=== PATIENT | female | born 1975 | race Caucasian/White ===

== ENCOUNTER 2020-06-13 13:25 | Observation (INO) | payer BC, OTHER ==
--- NOTE | 2020-06-13 13:28 | ERPHSYRPT ---
- History of Present Illness Time Seen by Provider: 06/13/20 13:28 Source: patient, EMS Exam Limitations: clinical condition Physician History: This is a 44-year-old white female who presented to the [facility] with complaints of multiple snakes in her vehicle that were biting her. In addition she was stating that her was performing line control on her. Per the officers, the patient is a known K2 and methamphetamine abuser/user. He is supposedly a schizophrenic as well and has been off of her medications for quite some time. Patient is aggressive and agitated and arrives to the emergency room via EMS. She is aggressive and agitated and is not allowing us to draw blood. She is yelling and cursing. She does appear intoxicated. The officers have IDed her. The patient is a danger to herself she is paranoid and hallucinating. Patient is not answering questions. However, I did ask if she has any complaints at all she mumbled no. When I asked her if she had any pain anywhere she mumbled no Severity of Symptoms-Max: moderate Severity of Symptoms-Current: moderate Context related to: other (Paranoia and hallucinations) Suicidal thoughts: other (Patient does not answer the question.) Associated Symptoms: agitated, hostile, hallucinating Previous symptoms: same symptoms as today Allergies/Adverse Reactions: UNOBTAINABLE Allergy (Unverified 06/13/20 13:43) Home Medications: Unobtainable 06/13/20 [History] Travel Risk - International Travel Have you traveled outside of the country in past 3 weeks: No - Coronavirus Screening Are you exhibiting any of the following symptoms?: No Close contact with a COVID-19 positive Pt in past 14-21 Days: No - Past Medical History Pertinent Past Medical History: No Neurological History: No Pertinent History ENT History: No Pertinent History Cardiac History: No Pertinent History Respiratory History: No Pertinent History Endocrine Medical History: No Pertinent History Musculoskeletal History: No Pertinent History GI Medical History: No Pertinent History History: No Pertinent History Psycho-Social History: No Pertinent History Female Reproductive Disorders: No Pertinent History - Past Surgical History Past Surgical History: No Neuro Surgical History: No Pertinent History Cardiac: No Pertinent History Respiratory: No Pertinent History Gastrointestinal: No Pertinent History Genitourinary: No Pertinent History Musculoskeletal: No Pertinent History Female Surgical History: No Pertinent History - Review of Systems Constitutional: No Symptoms Eyes: No Symptoms Ears, Nose, & Throat: No Symptoms Respiratory: No Symptoms Cardiac: No Symptoms Abdominal/Gastrointestinal: No Symptoms Genitourinary Symptoms: No Symptoms Musculoskeletal: No Symptoms Skin: No Symptoms Neurological: No Symptoms Psychological: Emotional Lability, Hallucinations Endocrine: No Symptoms Hematologic/Lymphatic: No Symptoms Immunological/Allergic: No Symptoms All Other Systems: Reviewed and Negative - Nursing Vital Signs Nursing Vital Signs: Initial Vital Signs Pulse Rate 120 H 06/13/20 13:31 Respiratory Rate 22 06/13/20 13:31 Blood Pressure 122/75 06/13/20 13:31 O2 Sat by Pulse Oximetry 99 06/13/20 13:31 Pain Scale Pain Intensity 0 - Physical Exam General Appearance: moderate distress, alert, anxiety Eyes, Ears, Nose, Throat Exam: normal ENT inspection, moist mucous membranes Neck Exam: normal inspection, non-tender, supple, full range of motion Respiratory Exam: normal breath sounds, lungs clear, airway intact, No chest tenderness, No respiratory distress Cardiovascular Exam: normal peripheral pulses, tachycardia Gastrointestinal/Abdominal Exam: soft, normal bowel sounds, No tenderness Extremities Exam: normal inspection, normal range of motion, No evidence of injury Neurological Exam: agitated, anxious Appearance: impaired insight Behavior/Eye Contact/Speech: avoids eye contact, refused to answer, uncooperative, agitated, intoxicated appearance Thoughts/Hallucinations: paranoid, visual hallucinations Skin Exam: normal color, warm, dry SpO2 Interpretation: normal O2 Delivery: Room Air Ordered Tests: Active Orders 24 hr Category Date Time Status Cma Or Lpn STAT Care 06/13/20 13:39 Active Clean Catch Urine Specimen STAT Care 06/13/20 13:38 Active EKG-ER Only STAT Care 06/13/20 13:38 Active IV Insertion STAT Care 06/13/20 13:38 Active ACETAMINOPHEN Stat Lab 06/13/20 14:33 Completed CBC W DIFF Stat Lab 06/13/20 14:33 Completed CMP Stat Lab 06/13/20 14:33 Completed CULTURE,URINE Stat Lab 06/13/20 14:50 Received ETHYL ALCOHOL Stat Lab 06/13/20 14:33 Completed SALICYLATE Stat Lab 06/13/20 14:33 Completed Urine Triage Profile Stat Lab 06/13/20 13:39 Completed Medication Summary Discontinued Medications Generic Name Dose Route Start Last Admin Trade Name Freq PRN Reason Stop Dose Admin Haloperidol Lactate 5 mg 06/13/20 13:38 06/13/20 13:53 Haldol 5 Mg IM 06/13/20 13:39 5 mg STAT ONE Administration Haloperidol Lactate Confirm 06/13/20 13:39 Haldol 5 Mg Administered 06/13/20 13:40 Dose 5 mg .ROUTE .STK-MED ONE Sodium Chloride 1,000 mls @ 999 mls/hr 06/13/20 13:38 06/13/20 15:23 Sodium Chloride 0.9% 1000 Ml IV 06/13/20 14:38 Infused .Q1H1M STA Infusion Sodium Chloride Confirm 06/13/20 14:13 Sodium Chloride 0.9% 1000 Ml Administered 06/13/20 14:14 Dose 1,000 mls @ ud .ROUTE .STK-MED ONE Lorazepam 2 mg 06/13/20 14:22 06/13/20 14:51 Ativan 2 Mg/1 Ml Vial IM 06/13/20 14:23 2 mg STAT ONE Administration Lorazepam Confirm 06/13/20 14:22 Ativan 2 Mg/1 Ml Vial Administered 06/13/20 14:23 Dose 2 mg .ROUTE .STK-MED ONE Lorazepam 2 mg 06/13/20 14:42 06/13/20 14:51 Ativan 2 Mg/1 Ml Vial IV 06/13/20 14:43 2 mg STAT ONE Administration Lorazepam Confirm 06/13/20 14:42 Ativan 2 Mg/1 Ml Vial Administered 06/13/20 14:43 Dose 2 mg .ROUTE .STK-MED ONE Lab/Rad Data: Laboratory Result Diagrams 06/13/20 14:33 06/13/20 14:33 Laboratory Results 06/13/20 06/13/20 06/13/20 Range/Units 16:23 14:33 14:33 WBC 9.1 (4.0-10.5) K/mm3 RBC 4.32 (4.1-5.4) M/mm3 Hgb 13.2 (12.0-16.0) gm/dl Hct 39.6 (35-47) % MCV 91.7 (78-100) fl MCH 30.6 (26-32) pg MCHC 33.3 (32-36) g/dl RDW 12.6 (11.5-14.0) % Plt Count 246 (150-450) K/mm3 MPV 10.8 (7.5-11.0) fl Gran % 65.0 (36.0-66.0) % Eos # (Auto) 0.06 (0-0.5) Absolute Lymphs (auto) 2.04 (1.0-4.6) Absolute Monos (auto) 1.05 (0.0-1.3) Lymphocytes % 22.5 L (24.0-44.0) % Monocytes % 11.6 (0.0-12.0) % Eosinophils % 0.7 (0.00-5.0) % Basophils % 0.2 (0.0-0.4) % Absolute Granulocytes 5.89 (1.4-6.9) Basophils # 0.02 (0-0.4) Sodium 137 (137-145) mmol/L Potassium 3.5 (3.5-5.1) mmol/L Chloride 107 (98-107) mmol/L Carbon Dioxide 19 L (22-30) mmol/L Anion Gap 13.9 (5-15) MEQ/L BUN 14 (7-17) mg/dL Creatinine 0.79 (0.52-1.04) mg/dL Estimated GFR > 60.0 ML/MIN Glucose 108 H (74-106) mg/dL Calcium 8.7 (8.4-10.2) mg/dL Total Bilirubin 0.40 (0.2-1.3) mg/dL AST 27 (14-36) U/L ALT 17 (0-35) U/L Alkaline Phosphatase 65 (38-126) U/L Serum Total Protein 6.6 (6.3-8.2) g/dL Albumin 3.9 (3.5-5.0) g/dL Salicylates < 1.0 L (2-20) mg/dL Urine Opiates Level (NEGATIVE) Ur Methadone (NEGATIVE) Acetaminophen 22 (10-30) ug/ml Urine Barbiturates (NEGATIVE) Ur Phencyclidine (PCP) (NEGATIVE) Urine Amphetamine (NEGATIVE) U Benzodiazepine Level (NEGATIVE) Urine Cocaine (NEGATIVE) Urine Marijuana (THC) (NEGATIVE) Ethyl Alcohol < 10 (0-10) mg/dL SARS-CoV-2 (PCR) NEGATIVE (NEGATIVE) 06/13/20 Range/Units 13:39 WBC (4.0-10.5) K/mm3 RBC (4.1-5.4) M/mm3 Hgb (12.0-16.0) gm/dl Hct (35-47) % MCV (78-100) fl MCH (26-32) pg MCHC (32-36) g/dl RDW (11.5-14.0) % Plt Count (150-450) K/mm3 MPV (7.5-11.0) fl Gran % (36.0-66.0) % Eos # (Auto) (0-0.5) Absolute Lymphs (auto) (1.0-4.6) Absolute Monos (auto) (0.0-1.3) Lymphocytes % (24.0-44.0) % Monocytes % (0.0-12.0) % Eosinophils % (0.00-5.0) % Basophils % (0.0-0.4) % Absolute Granulocytes (1.4-6.9) Basophils # (0-0.4) Sodium (137-145) mmol/L Potassium (3.5-5.1) mmol/L Chloride (98-107) mmol/L Carbon Dioxide (22-30) mmol/L Anion Gap (5-15) MEQ/L BUN (7-17) mg/dL Creatinine (0.52-1.04) mg/dL Estimated GFR ML/MIN Glucose (74-106) mg/dL Calcium (8.4-10.2) mg/dL Total Bilirubin (0.2-1.3) mg/dL AST (14-36) U/L ALT (0-35) U/L Alkaline Phosphatase (38-126) U/L Serum Total Protein (6.3-8.2) g/dL Albumin (3.5-5.0) g/dL Salicylates (2-20) mg/dL Urine Opiates Level NEGATIVE (NEGATIVE) Ur Methadone NEGATIVE (NEGATIVE) Acetaminophen (10-30) ug/ml Urine Barbiturates NEGATIVE (NEGATIVE) Ur Phencyclidine (PCP) NEGATIVE (NEGATIVE) Urine Amphetamine POSITIVE (NEGATIVE) U Benzodiazepine Level NEGATIVE (NEGATIVE) Urine Cocaine NEGATIVE (NEGATIVE) Urine Marijuana (THC) NEGATIVE (NEGATIVE) Ethyl Alcohol (0-10) mg/dL SARS-CoV-2 (PCR) (NEGATIVE) - Progress Progress: improved, re-examined Progress Note: 06/13/20 18:22 Medical decision making: This patient has a history of schizophrenia and bipolar disorder. She has been off her medication for several months per her family report. She is also been using methamphetamines. Patient has been having hallucinations. She has been agitated and aggressive in her behavior. She re quired both chemical and physical restraints. We have now removed her physical restraints and she is sedated with a combination of Ativan and Haldol. Patient will require evaluation by [facility]. We will admit her to the intensive care unit. I spoke to Dr. Valdez. I reviewed the patient history, condition, laboratory results. She accepts the patient admission in the intensive care un it. She will obtain [facility] consultation in the morning. Discussed with : Amanda - Departure Departure Disposition: Home Clinical Impression: Self-harming behavior, Visual hallucinations, Schizophrenia, Bipolar disorder Condition: Stable Critical Care Time: Yes Critical Care Time(excluding separately billable procedures): Critical 30-74 mins
[2020-06-13] MEDS ORDERED: Haldol 5 MG IM ONE (13:38)
[2020-06-13] MEDS ORDERED: Sodium Chloride 0.9% 1000 ML 1,000 ML IV STA (13:38)
[2020-06-13] MEDS ORDERED: Haldol 5 MG ONE (13:39)
[2020-06-13] MEDS ORDERED: Sodium Chloride 0.9% 1000 ML 1,000 ML ONE (14:13)
[2020-06-13] MEDS ORDERED: Ativan 2 MG/1 ML VIAL IM ONE (14:22)
[2020-06-13] MEDS ORDERED: Ativan 2 MG/1 ML VIAL ONE ×2 (14:22→14:42)
[2020-06-13] MEDS ORDERED: Ativan 2 MG/1 ML VIAL IV ONE (14:42)
[2020-06-13 14:50] LABS: Absolute Neutrophil Ct (ANC) 5.89 (1.4-6.9); BASOPHIL % 0.2 % (0.0-0.4); Basophil (Absolute #) 0.02 (0-0.4); Eosinophil % 0.7 % (0.00-5.0); Eosinophil (Absolute #) 0.06 (0-0.5); Hematocrit 39.6 % (35-47); Hemoglobin 13.2 gm/dl (12.0-16.0); Lymphocyte (Absolute #) 2.04 (1.0-4.6); Lymphocytes % 22.5 % (24.0-44.0); Mean Cell Volume 91.7 fl (78-100); Mean Corpuscular Hemoglobin 30.6 pg (26-32); Mean Corpuscular Hgb Concent. 33.3 g/dl (32-36); Mean Platelet Volume 10.8 fl (7.5-11.0); Monocyte (Absolute #) 1.05 (0.0-1.3); Monocytes % 11.6 % (0.0-12.0); Platelet Count 246 K/mm3 (150-450); Red Blood Count 4.32 M/mm3 (4.1-5.4); Red Cell Distribution Width 12.6 % (11.5-14.0); White Blood Count 9.1 K/mm3 (4.0-10.5)
[2020-06-13 15:05] LABS: Barbiturate,Urine NEGATIVE (NEGATIVE); Benzodiazepine,Urine NEGATIVE (NEGATIVE); Cocaine,Urine NEGATIVE (NEGATIVE); Methadone,Urine NEGATIVE (NEGATIVE); Opiate,Urine NEGATIVE (NEGATIVE); PCP,Urine NEGATIVE (NEGATIVE); THC,Urine NEGATIVE (NEGATIVE)
[2020-06-13 15:35] LABS: Amphetamine,Urine POSITIVE (NEGATIVE)
[2020-06-13 15:39] LABS: ACETAMINOPHEN 22 ug/ml (10-30); ALBUMIN 3.9 g/dL (3.5-5.0); ALKALINE PHOSPHATASE 65 U/L (38-126); ANION GAP 13.9 MEQ/L (5-15); BLOOD UREA NITROGEN 14 mg/dL (7-17); CHLORIDE 107 mmol/L (98-107); Calcium 8.7 mg/dL (8.4-10.2); Carbon Dioxide 19 mmol/L (22-30); Creatinine 1 0.79 mg/dL (0.52-1.04); EST GLOMERULAR FILTRATION RATE > 60.0 ML/MIN; Glucose 108 mg/dL (74-106); Potassium 3.5 mmol/L (3.5-5.1); SGOT/AST 27 U/L (14-36); SGPT/ALT 17 U/L (0-35); SODIUM 137 mmol/L (137-145); Total Protein 6.6 g/dL (6.3-8.2)
[2020-06-13 15:48] LABS: ETHYL ALCOHOL < 10 mg/dL (0-10); SALICYLATE < 1.0 mg/dL (2-20)
[2020-06-13] MEDS ORDERED: Zofran 4 MG/2 ML VIAL IV PRN (18:33)
[2020-06-13] MEDS ORDERED: TYLENOL 325 MG PO PRN (18:33)
[2020-06-13] MEDS: Ativan 2 MG/1 ML VIAL IV PRN ×2 (18:39→23:10)
[2020-06-13] MEDS: Sodium Chloride 0.9% 1000 ML 1,000 ML IV SCH (18:39)
--- NOTE | 2020-06-14 08:38 | PCM.HP ---
History of Present Illness - Chief Complaint Chief Complaint: Visual hallucinations Date: 06/14/20 History of Present Illness: is a 44 year old female, with known history of drug abuse and schizophrenia presented by police yesterday with florid hallucinations, pt. had to be restrained and immediate [facility] initiated awaiting her psych consult. - Review of Systems Constitutional: No Fever, No Chills Eyes: No Symptoms Ears, Nose, & Throat: No Symptoms Respiratory: No Cough, No Short Of Breath Cardiac: No Chest Pain, No Edema, No Syncope Abdominal/Gastrointestinal: No Abdominal Pain, No Nausea, No Vomiting, No Diarrhea Genitourinary Symptoms: No Dysuria Musculoskeletal: No Back Pain, No Neck Pain Skin: No Rash Neurological: No Dizziness, No Focal Weakness, No Sensory Changes Psychological: No Symptoms Endocrine: No Symptoms Hematologic/Lymphatic: No Symptoms Immunological/Allergic: No Symptoms Medications & Allergies Home Medications: Home Medication List No Reportable Medications [No Reported Medications] 06/13/20 [History Confirmed 06/13/20] Allergies/Adverse Reactions: Allergies Allergy/AdvReac Type Severity Reaction Status Date / Time UNOBTAINABLE Allergy Unverified 06/13/20 13:43 - Past Medical History Past Medical History: No Neurological History: No Pertinent History ENT History: No Pertinent History Cardiac History: No Pertinent History Respiratory History: No Pertinent History Endocrine Medical History: No Pertinent History Musculoskelatal History: No Pertinent History GI Medical History: No Pertinent History History: No Pertinent History Pyscho-Social History: Other Reproductive Disorders: No Pertinent History Comment: schizophrenia, bipolar, substance abuse (meth) - Female History Hx Last Menstrual Period: unsure Are you now?: No - Past Surgical History Past Surgical History: No Neuro Surgical History: No Pertinent History Cardiac History: No Pertinent History Respiratory Surgery: No Pertinent History GI Surgical History: No Pertinent History Genitourinary Surgical Hx: No Pertinent History Musculskeletal Surgical Hx: No Pertinent History Female Surgical History: No Pertinent History - Social History Smoking Status: Former smoker Exposure to second hand smoke: No - Physical Exam Vital Signs: Vital Signs - 24 hr Temp Pulse Resp BP BP Pulse Ox 06/14/20 08:00 98 H 16 105/80 98 06/14/20 07:48 99 06/14/20 04:00 97.6 F 91 H 16 110/81 99 11/18/20 23:56 82 06/13/20 23:44 97.1 F 86 19 124/85 99 06/13/20 19:16 97.1 F 99 H 111/80 100 06/13/20 18:29 113 H 17 111/80 100 06/13/20 18:04 98.2 F 82 20 133/87 99 06/13/20 17:02 105 H 18 121/77 98 06/13/20 16:38 97.6 F 104 H 20 123/69 100 06/13/20 15:32 112 H 16 123/73 98 06/13/20 13:31 120 H 22 122/75 99 General Appearance: no apparent distress Neurologic Exam: intoxicated appearance Eye Exam: eyes nml inspection Ears, Nose, Throat Exam: normal ENT inspection, moist mucous membranes Neck Exam: normal inspection, non-tender, supple Respiratory Exam: normal breath sounds, lungs clear, No chest tenderness Cardiovascular Exam: regular rate/rhythm, normal heart sounds Gastrointestinal/Abdomen Exam: soft, normal bowel sounds, No tenderness, No distention, No mass Pelvic Exam: not done Rectal Exam: not done Extremity Exam: normal inspection, No calf tenderness Skin Exam: normal color, warm, dry, No rash, No petechiae Results - Labs Lab/Micro Results: Lab Results-Last 24 Hours 06/13/20 06/13/20 06/13/20 Range/Units 13:39 14:33 14:33 WBC 9.1 (4.0-10.5) K/mm3 RBC 4.32 (4.1-5.4) M/mm3 Hgb 13.2 (12.0-16.0) gm/dl Hct 39.6 (35-47) % MCV 91.7 (78-100) fl MCH 30.6 (26-32) pg MCHC 33.3 (32-36) g/dl RDW 12.6 (11.5-14.0) % Plt Count 246 (150-450) K/mm3 MPV 10.8 (7.5-11.0) fl Gran % 65.0 (36.0-66.0) % Eos # (Auto) 0.06 (0-0.5) Absolute Lymphs (auto) 2.04 (1.0-4.6) Absolute Monos (auto) 1.05 (0.0-1.3) Lymphocytes % 22.5 L (24.0-44.0) % Monocytes % 11.6 (0.0-12.0) % Eosinophils % 0.7 (0.00-5.0) % Basophils % 0.2 (0.0-0.4) % Absolute Granulocytes 5.89 (1.4-6.9) Basophils # 0.02 (0-0.4) Sodium 137 (137-145) mmol/L Potassium 3.5 (3.5-5.1) mmol/L Chloride 107 (98-107) mmol/L Carbon Dioxide 19 L (22-30) mmol/L Anion Gap 13.9 (5-15) MEQ/L BUN 14 (7-17) mg/dL Creatinine 0.79 (0.52-1.04) mg/dL Estimated GFR > 60.0 ML/MIN Glucose 108 H (74-106) mg/dL Calcium 8.7 (8.4-10.2) mg/dL Total Bilirubin 0.40 (0.2-1.3) mg/dL AST 27 (14-36) U/L ALT 17 (0-35) U/L Alkaline Phosphatase 65 (38-126) U/L Serum Total Protein 6.6 (6.3-8.2) g/dL Albumin 3.9 (3.5-5.0) g/dL Salicylates < 1.0 L (2-20) mg/dL Urine Opiates Level NEGATIVE (NEGATIVE) Ur Methadone NEGATIVE (NEGATIVE) Acetaminophen 22 (10-30) ug/ml Urine Barbiturates NEGATIVE (NEGATIVE) Ur Phencyclidine (PCP) NEGATIVE (NEGATIVE) Urine Amphetamine POSITIVE (NEGATIVE) U Benzodiazepine Level NEGATIVE (NEGATIVE) Urine Cocaine NEGATIVE (NEGATIVE) Urine Marijuana (THC) NEGATIVE (NEGATIVE) Ethyl Alcohol < 10 (0-10) mg/dL SARS-CoV-2 (PCR) (NEGATIVE) 06/13/20 Range/Units 16:23 WBC (4.0-10.5) K/mm3 RBC (4.1-5.4) M/mm3 Hgb (12.0-16.0) gm/dl Hct (35-47) % MCV (78-100) fl MCH (26-32) pg MCHC (32-36) g/dl RDW (11.5-14.0) % Plt Count (150-450) K/mm3 MPV (7.5-11.0) fl Gran % (36.0-66.0) % Eos # (Auto) (0-0.5) Absolute Lymphs (auto) (1.0-4.6) Absolute Monos (auto) (0.0-1.3) Lymphocytes % (24.0-44.0) % Monocytes % (0.0-12.0) % Eosinophils % (0.00-5.0) % Basophils % (0.0-0.4) % Absolute Granulocytes (1.4-6.9) Basophils # (0-0.4) Sodium (137-145) mmol/L Potassium (3.5-5.1) mmol/L Chloride (98-107) mmol/L Carbon Dioxide (22-30) mmol/L Anion Gap (5-15) MEQ/L BUN (7-17) mg/dL Creatinine (0.52-1.04) mg/dL Estimated GFR ML/MIN Glucose (74-106) mg/dL Calcium (8.4-10.2) mg/dL Total Bilirubin (0.2-1.3) mg/dL AST (14-36) U/L ALT (0-35) U/L Alkaline Phosphatase (38-126) U/L Serum Total Protein (6.3-8.2) g/dL Albumin (3.5-5.0) g/dL Salicylates (2-20) mg/dL Urine Opiates Level (NEGATIVE) Ur Methadone (NEGATIVE) Acetaminophen (10-30) ug/ml Urine Barbiturates (NEGATIVE) Ur Phencyclidine (PCP) (NEGATIVE) Urine Amphetamine (NEGATIVE) U Benzodiazepine Level (NEGATIVE) Urine Cocaine (NEGATIVE) Urine Marijuana (THC) (NEGATIVE) Ethyl Alcohol (0-10) mg/dL SARS-CoV-2 (PCR) NEGATIVE (NEGATIVE) Microbiology 06/13/20 14:50 Urine Culture - Preliminary Catherized <10K NORMAL SKIN PATRICIA PROBABLE SKIN CONTAMINANT Assessment/Plan (1) Methamphetamine abuse Current Visit: Yes Status: Acute Assessment & Plan: await psych clearance and plan Code(s): F15.10 - OTHER STIMULANT ABUSE, UNCOMPLICATED (2) Schizophrenia Current Visit: Yes Status: Acute Assessment & Plan: psych eval and plan Code(s): F20.9 - SCHIZOPHRENIA, UNSPECIFIED
[2020-06-14] MEDS ORDERED: FLUZONE QUAD 2020-2021 SYRINGE IM ONE (10:00)
[2020-06-14] MEDS: Sodium Chloride 0.9% 1000 ML 1,000 ML IV SCH (14:11)
[2020-06-15] MEDS: Sodium Chloride 0.9% 1000 ML 1,000 ML IV SCH (09:48)
[2020-06-15 11:31] VITALS: BP 95/57; O2SAT 99
[2020-06-15 12:48] VITALS: PULSE 115
--- NOTE | 2020-06-15 12:57 | PCM.DS ---
Discharge Summary Date of Admission: 06/13/20 18:20 Admitting Physician: LYNSEY BHAT DO Consults: Consults on Case 06/13/20 18:33 Consult,Yoly [Psychiatric Consult] STAT Primary Care Provider: DAYNA CHAVEZ Allergies Allergies UNOBTAINABLE Allergy (Unverified 06/14/20 12:55) Hospital Summary - Hospital Course Hospital Course: Patient was admitted through ER with hallucinations and combative behavior. She had pulled into the ch[facility] asking for help with snakes that are in her truck biting her. She became combative and was IDed by police. She has Hx Schizophrenia , Meth and K2 abuse. She was chemically restrained with Haldol and Ativan and admitted to ICU . She has been sleeping and when awake and alert ,[place] completed a Tele mental Health evaluation. She was not homicidal or suicidal and did not qualify for inpatient admission and will be followed as an outpatient at [facility]. - Vitals & Intake/Output Vital Signs: Vital Signs Temperature 98.7 F 06/15/20 11:30 Pulse Rate 115 H 06/15/20 12:00 Respiratory Rate 20 06/15/20 11:30 Blood Pressure 95/57 06/15/20 11:30 O2 Sat by Pulse Oximetry 99 06/15/20 12:00 Intake & Output: Intake & Output 06/13/20 06/14/20 06/15/20 06/16/20 11:59 11:59 11:59 11:59 Intake Total 534 1563 Output Total 1900 Balance 534 -337 Weight 56.6 kg 54.1 kg - Lab Result Diagrams: 06/13/20 14:33 06/13/20 14:33 Micro Results-Entire Visit: Microbiology 06/13/20 14:50 Urine Culture - Final Catherized <10K NORMAL SKIN PATRICIA PROBABLE SKIN CONTAMINANT Discharge Exam General Appearance: no apparent distress Neurologic Exam: alert, oriented x 3, cooperative Eye Exam: PERRL, EOMI Ears, Nose, Throat Exam: normal ENT inspection Neck Exam: normal inspection Respiratory Exam: normal breath sounds, lungs clear Cardiovascular Exam: regular rate/rhythm Gastrointestinal/Abdomen Exam: soft, normal bowel sounds (nontender) Extremity Exam: normal inspection Skin Exam: normal color, warm, dry Final Diagnosis/Problem List - Final Discharge Diagnosis/Problem (1) Hallucinations, unspecified Current Visit: Yes Status: Resolved Assessment & Plan: will follow with [facility] Code(s): R44.3 - HALLUCINATIONS, UNSPECIFIED (2) Bipolar disorder Current Visit: Yes Status: Chronic Assessment & Plan: has not been followed for possible 3 years but agrees to go to outpatient at the [facility] for initial appt. . Code(s): F31.9 - BIPOLAR DISORDER, UNSPECIFIED (3) Schizophrenia Current Visit: Yes Status: Chronic Assessment & Plan: not currently on medication.Will have appt CHANDRAKANT with [facility] .I spoke to patient's Harshil and he and the daughter will help her get to the visit Phone # given on discharge.. Code(s): F20.9 - SCHIZOPHRENIA, UNSPECIFIED (4) Drug abuse Current Visit: Yes Status: Acute Assessment & Plan: acute and chronic ,is willing to get help,Family seems supportive. Code(s): F19.10 - OTHER PSYCHOACTIVE SUBSTANCE ABUSE, UNCOMPLICATED - Discharge Disposition: Home, Self-Care Condition: Stable Prescriptions: No Action No Reportable Medications [No Reported Medications] Instructions: Schizophrenia, Drug Abuse and Drug Addiction (DC) Additional Instructions: Follow up with [facility]. Call [phone] to be transferred to the [place] Office for an appointment Follow up with: DAYNA CHAVEZ [Primary Care Provider] -
== END 2020-06-15 13:54 | disposition home or self-care (01) ==
LOC: ED 13:25 → INTOOBSV 18:20 → ICU 18:20 → OBSVTOIN 18:20
PROVIDERS: ADMIT Family Medicine; ATTEND Family Medicine
DX: R44.3 Hallucinations, unspecified (principal); F31.9 Bipolar disorder, unspecified; F20.9 Schizophrenia, unspecified; F19.10 Other psychoactive substance abuse, uncomplicated; Z20.828 Contact with and (suspected) exposure to other viral communicable diseases
CPT/HCPCS: 36415; 80053; 80307; 85025; 87086; 90791; 93005; 93041; 93268; 94770; 96360; 96372; 96374; 99285; G0378; G0480; P9612; Q3014; U0003; J1630; J2060

== ENCOUNTER 2021-03-24 22:30 | Emergency (ER) | payer OTHER ==
[2021-03-24] MEDS ORDERED: Sodium Chloride 0.9% 1000 ML 1,000 ML IV STA (22:45)
[2021-03-24] MEDS ORDERED: Sodium Chloride 0.9% 1000 ML 1,000 ML ONE (22:56)
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
[2021-03-24 23:41] LABS: Absolute Neutrophil Ct (ANC) 3.29 (1.4-6.9); BASOPHIL % 0.2 % (0.0-0.4); Basophil (Absolute #) 0.01 (0-0.4); Eosinophil % 1.3 % (0.00-5.0); Eosinophil (Absolute #) 0.07 (0-0.5); Hemoglobin 12.5 gm/dl (12.0-16.0); Lymphocyte (Absolute #) 1.63 (1.0-4.6); Lymphocytes % 29.5 % (24.0-44.0); Mean Cell Volume 90.3 fl (78-100); Mean Corpuscular Hemoglobin 28.9 pg (26-32); Mean Corpuscular Hgb Concent. 32.1 g/dl (32-36); Mean Platelet Volume 10.5 fl (7.5-11.0); Monocyte (Absolute #) 0.53 (0.0-1.3); Monocytes % 9.6 % (0.0-12.0); Neutrophil % 59.4 % (36.0-66.0); Platelet Count 238 K/mm3 (150-450); Red Blood Count 4.32 M/mm3 (4.1-5.4); Red Cell Distribution Width 12.7 % (11.5-14.0); White Blood Count 5.5 K/mm3 (4.0-10.5)
[2021-03-25 00:25] VITALS: BP 113/68; PULSE 80; O2SAT 97
== END 2021-03-25 00:31 | disposition home or self-care (01) ==
LOC: ED 22:30
DX: Z02.89 Encounter for other administrative examinations (principal); R42 Dizziness and giddiness; R53.1 Weakness
CPT/HCPCS: 36000; 36415; 85025; 93005; 99284